=== PATIENT | male | born 1965 | race Caucasian/White ===

== ENCOUNTER → 2018-09-16 | Outpatient (CLI) | payer BC, OTHER | END | disposition home or self-care (01) | LOC: CVU 14:50 | PROVIDERS: ATTEND Internal Medicine | DX: I11.9 Hypertensive heart disease without heart failure (principal) | CPT/HCPCS: 93306; 93880 ==

== ENCOUNTER 2019-06-01 08:47 | Outpatient (CLI) | payer BC | END 2019-06-01 23:59 | disposition home or self-care (01) | LOC: CFH 08:47 | PROVIDERS: ATTEND Internal Medicine | DX: R16.1 Splenomegaly, not elsewhere classified (principal) | CPT/HCPCS: 76700 ==

== ENCOUNTER → 2019-11-03 | Outpatient (CLI) | payer BC ==
[~2019-11-03] MED LIST: OMNIPAQUE 350 MG/ML, 100ML BOTTLE ONE
== END | disposition home or self-care (01) ==
LOC: RAD 08:24 → EDSTATUS 09:00
PROVIDERS: ATTEND Nurse Practitioner Primary Care
DX: I71.9 Aortic aneurysm of unspecified site, without rupture (principal); K76.0 Fatty (change of) liver, not elsewhere classified; M47.814 Spondylosis without myelopathy or radiculopathy, thoracic region
CPT/HCPCS: 71275; 82565; 93978; Q9967

== ENCOUNTER 2020-12-19 11:48 | Day surgery (SDC) | payer BC ==
[~2020-12-19] VITALS: Ht 188 cm; Wt 154.2 kg
[2020-12-19] MEDS ORDERED: HYDROCHLOROTH12.5 MG PO (12:54)
[2020-12-19] MEDS ORDERED: VITA1CAP PO (12:54)
[2020-12-19] MEDS ORDERED: EZET10TA70 PO (12:54)
[2020-12-19] MEDS ORDERED: VITAMIN D PO (12:54)
[2020-12-19] MEDS ORDERED: ROSU10TA2 PO (12:54)
[2020-12-19] MEDS ORDERED: AMLO-211 PO (12:54)
[2020-12-19] MEDS ORDERED: LOSA100T14 PO (12:54)
[2020-12-19] MEDS ORDERED: ALLO300T PO (12:54)
[2020-12-19] MEDS ORDERED: UBID100C41 PO (12:54)
[2020-12-19] MEDS ORDERED: CHLORHEXIDINE 15 ML UDC PO ONE (13:00)
[2020-12-19] MEDS ORDERED: LACTATED RINGERS 1,000 ML IV SCH (13:00)
[2020-12-19 13:15] VITALS: BP 145/84
[2020-12-19] MEDS ORDERED: LEVO75TA PO (13:26)
[2020-12-19] MEDS ORDERED: FENTANYL PF 250 MCG/5ML ONE (13:36)
[2020-12-19] MEDS ORDERED: DEXAMETHASONE 4 MG/ML, 1ML ONE (13:44)
[2020-12-19] MEDS ORDERED: ROCURONIUM 10 MG/ML,10ML ONE (13:44)
[2020-12-19] MEDS ORDERED: SUCCINYLCHOLINE 20 MG/ML, 10ML ONE (13:44)
[2020-12-19] MEDS ORDERED: CEFAZOLIN 1,000 MG ONE (13:44)
[2020-12-19] MEDS ORDERED: ONDANSETRON 2MG/ML, 2ML ONE (13:44)
[2020-12-19] MEDS ORDERED: PROPOFOL 10 MG/ML, 20ML ONE (13:44)
[2020-12-19] MEDS ORDERED: OMNIPAQUE 350 MG/ML, 50 ML BOTTLE ONE (14:40)
[2020-12-19] MEDS ORDERED: FENTANYL PF 100 MCG/2ML ONE (15:06)
[2020-12-19] MEDS: FENTANYL PF 100 MCG/2ML IV PRN ×2 (15:20→15:29)
[2020-12-19] MEDS ORDERED: ONDANSETRON 2MG/ML, 2ML IVPush PRN (15:30)
[2020-12-19] MEDS ORDERED: OXYcodone 5 MG/5 ML ORAL.SOL UDC PO PRN (15:30)
[2020-12-19] MEDS ORDERED: hydrALAzine 20 MG/ML, 1ML IV PRN (15:30)
[2020-12-19] MEDS ORDERED: PROMETHAZINE 25 MG/ML, 1ML IVPush PRN (15:30)
[2020-12-19] MEDS ORDERED: LABETALOL 5MG/ML, 20ML IV PRN (15:30)
[2020-12-19] MEDS ORDERED: MEPERIDINE/PF 25MG/0.5ML IVPush PRN (15:30)
[2020-12-19] MEDS ORDERED: HYDROmorphone 1 MG/ML, 1ML INJ IVPush PRN (15:30)
[2020-12-19] MEDS ORDERED: NOREPINEPHRINE 1 MG/ML, 4ML ONE (23:53)
== END 2020-12-19 17:01 | disposition home or self-care (01) ==
LOC: OR 11:48
PROVIDERS: ATTEND Urology
DX: N20.0 Calculus of kidney (principal); K76.0 Fatty (change of) liver, not elsewhere classified; E66.9 Obesity, unspecified; Z20.822 Contact with and (suspected) exposure to COVID-19; Z68.41 Body mass index [BMI] 40.0-44.9, adult; Z79.899 Other long term (current) drug therapy; Z87.442 Personal history of urinary calculi; Z80.42 Family history of malignant neoplasm of prostate
CPT/HCPCS: 52356; 74018; 87635; C1726; C1758; C2617; J0330; J0690; J1100; J2405; J2704; J3010; J7120; Q9967; 76000